=== PATIENT | male | born 1985 | race Caucasian/White ===

== ENCOUNTER 2019-03-08 17:59 | Emergency (ER) | payer SELFPAY ==
[~2019-03-08] VITALS: Ht 167.6 cm; Wt 86.2 kg
[2019-03-08 18:05] VITALS: BP 146/93
--- NOTE | 2019-03-08 18:12 | NUR ---
PT AMBULATED TO ER BED 9
--- NOTE | 2019-03-08 18:40 | NUR ---
PT PRESENTS TO ED WITH C/O RT LEG PAIN X3 MONTHS. PT STATES PAIN IS 10/10 AT THIS TIME. REPORTS TINGLING/STABBING SENSATION, RADIATING FROM BUTTOCKS TO CALF. PT DENIES INJURY/TRAUMA. Addendum: 03/08/19 at 1908 by RONNY PT PRESENTS TO ED WITH C/O RT LEG PAIN X3 MONTHS. PT STATES PAIN IS 4/10 AT THIS TIME. REPORTS TINGLING/STABBING SENSATION, RADIATING FROM BUTTOCKS TO CALF. PT DENIES INJURY/TRAUMA.
--- NOTE | 2019-03-08 19:08 | NUR ---
REPORT GIVEN TO [facility] FOLEY. TRANSFER OF CARE AT THIS TIME.
--- NOTE | 2019-03-08 20:00 | NUR ---
PT IN BED RESTING WITH EYES OPEN. AT BEDSIDE. STATES 8/[address] ROSADO NOTIFIED. CONTINUE TO MONITOR.
--- NOTE | 2019-03-08 21:00 | NUR ---
PT IN BED RESTING WITH EYES OPEN. STATES 8/[address] ROSADO NOTIFIED. CONTINUE TO MONITOR.
[2019-03-08] MEDS ORDERED: KETOROLAC 60 MG/2 ML VIAL IM ONE (21:05)
--- NOTE | 2019-03-08 22:00 | NUR ---
PT STATES 2/10 PAIN. CONTINUE TO MONITOR.
[2019-03-08 22:55] VITALS: BP 132/82
--- NOTE | 2019-03-08 22:55 | NUR ---
PT DISCHARGED BY DR ROSADO. RX OF NAPROSYN GIVEN. SIDE EFFECTS EXPLAINED. PT AMBULATED WITH STRONG AND STEADY GAIT. PT STATES 2/10 PAIN TOLERABLE. PT VERBALIZED UNDERSTANDING OF D/C INSTRUCTION TO DR. ROSADO. ALL QUESTIONS ANSWERED.
== END 2019-03-08 22:55 | disposition home or self-care (01) ==
LOC: MED 17:59
DX: M54.41 Lumbago with sciatica, right side (principal)
CPT/HCPCS: 96372; 99283; J1885

== ENCOUNTER 2023-05-03 08:39 | Emergency (ER) | payer MEDICAID ==
[~2023-05-03] VITALS: Ht 167.6 cm; Wt 88.5 kg
[2023-05-03 09:06] VITALS: BP 162/99; PULSE 96; RESP 16; TEMP 96.9; O2SAT 96
[2023-05-03] MEDS ORDERED: IBUP-2213 PO (11:32)
== END 2023-05-03 11:35 | disposition home or self-care (01) ==
LOC: MED 08:39
DX: S00.12XA Contusion of left eyelid and periocular area, initial encounter (principal); H11.32 Conjunctival hemorrhage, left eye; W50.1XXA Accidental kick by another person, initial encounter; Y93.89 Activity, other specified; Y92.89 Other specified places as the place of occurrence of the external cause; Y99.8 Other external cause status
CPT/HCPCS: 99282